=== PATIENT | male | born 1995 | race Caucasian/White ===

== ENCOUNTER 2025-03-18 13:53 | Emergency (ER) | payer MEDICAID, SELFPAY ==
[2025-03-18 14:03] VITALS: BP 147/93; PULSE 113; RESP 16; TEMP 36.7; O2SAT 98
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
--- NOTE | 2025-03-18 15:23 | PC.PHAR ---
Pt states he really doesn't like to take pain medications.
[2025-03-18 16:29] VITALS: BP 139/92; PULSE 103; O2SAT 98
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
[2025-03-18 16:45] VITALS: BP 139/82; PULSE 100; O2SAT 98
== END 2025-03-18 16:49 | disposition home or self-care (01) ==
PROVIDERS: Emergency Provider General Practice
DX: S19.80XA Other specified injuries of unspecified part of neck, initial encounter (principal); X58.XXXA Exposure to other specified factors, initial encounter
CPT/HCPCS: 70486; 72125; 99284